=== PATIENT | male | born 1945 | race Caucasian/White ===

== ENCOUNTER 2021-06-28 12:35 | Emergency (ER) | payer OTHER, MEDICARE ==
[2021-06-28 13:16] VITALS: RESP 18; TEMP 100
--- NOTE | 2021-06-28 14:53 | ED ---
General Adult HPI - General Chief complaint: Extremity Injury, Upper Stated complaint: Rt Hand Injury/Infection Time Seen by Provider: 06/28/21 13:58 Source: patient Mode of arrival: ambulatory Limitations: physical limitation - History of Present Illness Initial comments: 76-year-old male with a past medical history of hyperlipidemia, hypertension, diabetes mellitus presents to the emergency room for right hand irritation. Patient states he was doing a project with a steel wool several days ago. Shortly afterward he started to get some swelling and redness in the palm of the hand. States it was throbbing last night and keeping him awake. Patient denies any fevers at home. States he was seen at the [facility] and had an x-ray performed and he did not see any metal material.Patient has no other complaints at this time including shortness of breath, chest pain, abdominal pain, nausea or vomiting, headache, or visual changes. - Related Data Home Medications Medication Instructions Recorded Confirmed Allopurinol [Zyloprim] 300 mg PO DAILY 06/28/21 06/28/21 Aspirin EC [Ecotrin Low Dose] 81 mg PO DAILY 06/28/21 06/28/21 Atorvastatin [Lipitor] 40 mg PO DAILY 06/28/21 06/28/21 Ibuprofen [Advil] 600 mg PO Q8H PRN 06/28/21 06/28/21 Ibuprofen [Motrin] 600 mg PO DAILY PRN 06/28/21 06/28/21 Insulin Aspart [NovoLOG Flexpen] 35 units SQ AC-TID 06/28/21 06/28/21 Insulin Glargine,Hum.rec.anlog 40 unit SQ BID 06/28/21 06/28/21 [Lantus Solostar Pen] Ketorolac 0.5% Ophth Soln [Acular 1 drop RIGHT EYE QID 06/28/21 06/28/21 0.5%] Moxifloxacin HCl [Moxifloxacin 1 drop RIGHT EYE QID 06/28/21 06/28/21 0.5%] Iesxcxyv-Seomzvjnb-Xkgrnpkd 1 applic RIGHT EYE HS 06/28/21 06/28/21 [Maxitrol Ophth Oint] Omeprazole 20 mg PO DAILY 06/28/21 06/28/21 Prednisolone Acetate/Pf 1 drop RIGHT EYE QID 06/28/21 06/28/21 [Prednisolone Acet 1% Eye Drop] Semaglutide [Ozempic] 0.5 mg SQ FR 06/28/21 06/28/21 Tamsulosin HCl [Flomax] 0.4 mg PO DAILY 06/28/21 06/28/21 Triamcinolone 0.1% Ointment 1 applic TOPICAL BID PRN 06/28/21 06/28/21 [Kenalog 0.1% Ointment] Valsartan 320 mg PO DAILY 06/28/21 06/28/21 amLODIPine [Norvasc] 5 mg PO DAILY 06/28/21 06/28/21 metFORMIN HCL [Glucophage] 1,000 mg PO BID 06/28/21 06/28/21 rOPINIRole HCL [Requip] 4 mg PO HS 06/28/21 06/28/21 Previous Rx's Medication Instructions Recorded Cephalexin [Keflex] 500 mg PO Q6HR 10 Days #40 cap 06/28/21 Sulfamethox-Tmp 800-160Mg [Bactrim 1 tab PO Q12HR #20 tab 06/28/21 DS 800-160 mg] Allergies Allergy/AdvReac Type Severity Reaction Status Date / Time No Known Allergies Allergy Verified 06/28/21 15:37 Review of Systems ROS Statement: Those systems with pertinent positive or pertinent negative responses have been documented in the HPI. ROS Other: All systems not noted in ROS Statement are negative. Past Medical History Past Medical History: Diabetes Mellitus, Hyperlipidemia, Hypertension History of Any Multi-Drug Resistant Organisms: None Reported Past Surgical History: Hernia Repair Additional Past Surgical History / Comment(s): right eye Past Psychological History: No Psychological Hx Reported Smoking Status: Former smoker Past Alcohol Use History: None Reported Past Drug Use History: None Reported General Exam Limitations: physical limitation General appearance: alert, in no apparent distress Head exam: Present: atraumatic Eye exam: Present: normal appearance, PERRL, EOMI. Absent: scleral icterus, conjunctival injection ENT exam: Present: normal exam, mucous membranes moist Neck exam: Present: normal inspection, full ROM. Absent: tenderness Respiratory exam: Present: normal lung sounds bilaterally. Absent: respiratory distress, wheezes Cardiovascular Exam: Present: regular rate, normal rhythm, normal heart sounds Extremities exam: Present: full ROM (Full range of motion of all digits of the right hand including full extension and full flexion), normal capillary refill (Capillary refill less than 2 seconds, radial pulse 2+ right upper extremity), other (Erythema and areas of induration noted on the hypothenar eminence of the right palm) Course Vital Signs 06/28/21 13:10 Temperature 100.0 F H Pulse Rate 69 Respiratory 18 Rate Blood Pressure 199/80 O2 Sat by Pulse 97 Oximetry Medical Decision Making - Medical Decision Making Vitals are stable. Patient has some nodular erythematous lesions noted to the hypo-thenar eminence of the right hand. He has full range of motion of all digits. No flexor tendon tenderness. Mild edema noted. No fluctuant areas, more nodular. She was also evaluated by Dr. Bosch. Low-grade temperature of 100.0 noted. No fevers at home. CBC is unremarkable with a normal white count of 9.1. CMP is unremarkable. CRP is normal. COVID-19 is negative. Outside x- ray was reviewed, there is no evidence for foreign body. Ultrasound shows prominent edema of the skin noted however no abnormal fluid collection in the palm. I discussed this case with Lurdes who is on-call for Dr. Blanco [facility]. Recommended starting him on Keflex and Bactrim and they will see him in the office Friday. I did discuss the patient that if symptoms worsen prior to that he will need to return to the emergency room and he is agreeable to this. I discussed this case and examined patient with attending Dr. Bosch who agrees with this assessment and treatment plan. - Lab Data Result diagrams: 06/28/21 14:39 06/28/21 14:39 Lab Results 06/28/21 06/28/21 06/28/21 Range/Units 14:39 14:39 14:39 WBC 9.1 (3.8-10.6) k/uL RBC 5.75 (4.30-5.90) m/uL Hgb 15.9 (13.0-17.5) gm/dL Hct 46.5 (39.0-53.0) % MCV 81.0 (80.0-100.0) fL MCH 27.7 (25.0-35.0) pg MCHC 34.2 (31.0-37.0) g/dL RDW 15.4 (11.5-15.5) % Plt Count 195 (150-450) k/uL MPV 6.7 Neutrophils % 74 % Lymphocytes % 17 % Monocytes % 5 % Eosinophils % 2 % Basophils % 1 % Neutrophils # 6.8 (1.3-7.7) k/uL Lymphocytes # 1.5 (1.0-4.8) k/uL Monocytes # 0.5 (0-1.0) k/uL Eosinophils # 0.2 (0-0.7) k/uL Basophils # 0.0 (0-0.2) k/uL Poikilocytosis Slight Sodium 135 L (137-145) mmol/L Potassium 4.7 (3.5-5.1) mmol/L Chloride 102 (98-107) mmol/L Carbon Dioxide 23 (22-30) mmol/L Anion Gap 10 mmol/L BUN 23 H (9-20) mg/dL Creatinine 0.99 (0.66-1.25) mg/dL Est GFR (CKD-EPI)AfAm 86 (>60 ml/min/1.73 sqM) Est GFR (CKD-EPI)NonAf 75 (>60 ml/min/1.73 sqM) Glucose 163 H (74-99) mg/dL Plasma Lactic Acid John 1.2 (0.7-2.0) mmol/L Calcium 9.6 (8.4-10.2) mg/dL Total Bilirubin 1.2 (0.2-1.3) mg/dL AST 26 (17-59) U/L ALT 18 (4-49) U/L Alkaline Phosphatase 62 (38-126) U/L C-Reactive Protein 0.6 (<1.0) mg/dL Total Protein 7.6 (6.3-8.2) g/dL Albumin 4.3 (3.5-5.0) g/dL Coronavirus (PCR) (Not Detectd) Influenza Type A RNA (Not Detectd) Influenza Type B (PCR) (Not Detectd) 06/28/21 06/28/21 Range/Units 14:39 14:39 WBC (3.8-10.6) k/uL RBC (4.30-5.90) m/uL Hgb (13.0-17.5) gm/dL Hct (39.0-53.0) % MCV (80.0-100.0) fL MCH (25.0-35.0) pg MCHC (31.0-37.0) g/dL RDW (11.5-15.5) % Plt Count (150-450) k/uL MPV Neutrophils % % Lymphocytes % % Monocytes % % Eosinophils % % Basophils % % Neutrophils # (1.3-7.7) k/uL Lymphocytes # (1.0-4.8) k/uL Monocytes # (0-1.0) k/uL Eosinophils # (0-0.7) k/uL Basophils # (0-0.2) k/uL Poikilocytosis Sodium (137-145) mmol/L Potassium (3.5-5.1) mmol/L Chloride (98-107) mmol/L Carbon Dioxide (22-30) mmol/L Anion Gap mmol/L BUN (9-20) mg/dL Creatinine (0.66-1.25) mg/dL Est GFR (CKD-EPI)AfAm (>60 ml/min/1.73 sqM) Est GFR (CKD-EPI)NonAf (>60 ml/min/1.73 sqM) Glucose (74-99) mg/dL Plasma Lactic Acid John (0.7-2.0) mmol/L Calcium (8.4-10.2) mg/dL Total Bilirubin (0.2-1.3) mg/dL AST (17-59) U/L ALT (4-49) U/L Alkaline Phosphatase (38-126) U/L C-Reactive Protein (<1.0) mg/dL Total Protein (6.3-8.2) g/dL Albumin (3.5-5.0) g/dL Coronavirus (PCR) Not Detected (Not Detectd) Influenza Type A RNA Not Detected (Not Detectd) Influenza Type B (PCR) Not Detected (Not Detectd) Disposition Clinical Impression: Hand pain, right, Cellulitis Disposition: HOME SELF-CARE Condition: Good Instructions (If sedation given, give patient instructions): Cellulitis (ED) Additional Instructions: Please take antibiotic as directed. Follow-up with your doctor. Follow-up with repeat exam Friday. Return to the emergency room after having worsening symptoms such as high fevers, streaking redness up the hand, or significantly worsening swelling. Prescriptions: Sulfamethox-Tmp 800-160Mg [Bactrim DS 800-160 mg] 1 tab PO Q12HR #20 tab Cephalexin [Keflex] 500 mg PO Q6HR 10 Days #40 cap Is patient prescribed a controlled substance at d/c from ED?: No Referrals: [facility],Clinic [Primary Care Provider] - 1-2 days Time of Disposition: 17:02
[2021-06-28 15:05] LABS: Albumin 4.3 g/dL (3.5-5.0); C Reactive Protein 0.6 mg/dL (<1.0); Calcium 9.6 mg/dL (8.4-10.2); Potassium 4.7 mmol/L (3.5-5.1); Total Bilirubin 1.2 mg/dL (0.2-1.3); Total Protein 7.6 g/dL (6.3-8.2)
[2021-06-28 15:12] LABS: Basophils % (A) 1 %; Eosinophils # (A) 0.2 k/uL (0-0.7); Eosinophils % (A) 2 %; HCT 46.5 % (39.0-53.0); HGB 15.9 gm/dL (13.0-17.5); Lymphocytes # (A) 1.5 k/uL (1.0-4.8); Lymphocytes % (A) 17 %; MCH 27.7 pg (25.0-35.0); MCHC 34.2 g/dL (31.0-37.0); Mean Platelet Volume 6.7; Monocytes # (A) 0.5 k/uL (0-1.0); Monocytes % (A) 5 %; Neutrophils # (A) 6.8 k/uL (1.3-7.7); Neutrophils % (A) 74 %; Platelet Count 195 k/uL (150-450); Poikilocytosis Slight; RBC 5.75 m/uL (4.30-5.90); RDW 15.4 % (11.5-15.5); WBC 9.1 k/uL (3.8-10.6)
--- NOTE | 2021-06-28 16:17 | US ---
EXAMINATION TYPE: US extremity nonvasc mass RT DATE OF EXAM: 06/28/2021 COMPARISON: Radiograph 06/28/2021 CLINICAL HISTORY: 76-year-old male soft tissue hand. Patient injured hand with steel wool at home. P atient states he had an xray and no foreign object was seen. TECHNIQUE AND FINDINGS: Api Architect notes: Scanned area of concern on right palm. -Area lateral palm= no fluid collection or mass visualized. Skin edema seen. -Area by fingers= no fluid collection or mass visualized. Skin edema seen. IMPRESSION: Scanning along the patient's palm shows no abnormal fluid collection. Prominent edema of the skin is noted
[2021-06-28] MEDS ORDERED: SULFAMETH-TMP DS STARTER PACK 2 TAB BTL PO STA (16:59)
[2021-06-28] MEDS ORDERED: CEPHALEXIN 500MG STARTER PACK 4 CAP BTL PO STA (16:59)
[2021-06-28] MEDS ORDERED: KETOROLAC 15 MG/ML 1 ML VIAL IM STA (17:23)
[2021-06-28 17:32] VITALS: BP 163/92; PULSE 71
== END 2021-06-28 17:32 | disposition home or self-care (01) ==
LOC: EC 12:35
DX: L03.113 Cellulitis of right upper limb (principal); M79.641 Pain in right hand; E78.5 Hyperlipidemia, unspecified; I10 Essential (primary) hypertension; E11.9 Type 2 diabetes mellitus without complications; Z20.822 Contact with and (suspected) exposure to COVID-19; Z79.82 Long term (current) use of aspirin; Z79.4 Long term (current) use of insulin; Z79.84 Long term (current) use of oral hypoglycemic drugs; Z87.891 Personal history of nicotine dependence
CPT/HCPCS: 99284; 96372; 36415; 80053; 83605; 85025; 86140; 87502; 87635; 76882; J1885

== ENCOUNTER 2023-04-12 11:05 | Inpatient (IN) | payer OTHER, MEDICARE ==
[2023-04-12] MEDS ORDERED: ACETAMINOPHEN TAB 500 MG TAB PO STA (11:39)
--- NOTE | 2023-04-12 11:42 | ED ---
General Adult HPI - General Chief complaint: Weakness Stated complaint: Weakness Time Seen by Provider: 04/12/23 11:15 Source: patient, RN notes reviewed Mode of arrival: ambulatory Limitations: no limitations - History of Present Illness Initial comments: Patient is a pleasant 78-year-old male presenting to the emergency Department with fatigue and weakness. Symptoms started 3-4 days ago. Patient was working on a heater and questions carbon monoxide exposure. Patient does feel a little short of breath. Occasional cough. Patient has been fatigued and sleeping more. Patient is unclear if fevers at home - Related Data Home Medications Medication Instructions Recorded Confirmed Aspirin EC [Ecotrin Low Dose] 81 mg PO DAILY 06/28/21 04/12/23 Atorvastatin [Lipitor] 40 mg PO DAILY 06/28/21 04/12/23 Insulin Aspart [NovoLOG Flexpen] See Protocol SQ AC-TID PRN 06/28/21 04/12/23 Insulin Glargine,Hum.rec.anlog 40 unit SQ BID 06/28/21 04/12/23 [Lantus Solostar Pen] Omeprazole 20 mg PO DAILY 06/28/21 04/12/23 Semaglutide [Ozempic] 0.5 mg SQ FR 06/28/21 04/12/23 Tamsulosin HCl [Flomax] 0.4 mg PO DAILY 06/28/21 04/12/23 Valsartan 320 mg PO DAILY 06/28/21 04/12/23 allopurinoL [Zyloprim] 300 mg PO DAILY 06/28/21 04/12/23 metFORMIN HCL [Glucophage] 1,000 mg PO BID 06/28/21 04/12/23 rOPINIRole HCL [Requip] 4 mg PO HS 06/28/21 04/12/23 amLODIPine [Norvasc] 10 mg PO DAILY 04/12/23 04/12/23 Allergies Allergy/AdvReac Type Severity Reaction Status Date / Time No Known Allergies Allergy Verified 04/12/23 14:20 Review of Systems ROS Statement: Those systems with pertinent positive or pertinent negative responses have been documented in the HPI. ROS Other: All systems not noted in ROS Statement are negative. Constitutional: Reports: as per HPI Eyes: Denies: eye pain ENT: Denies: ear pain Respiratory: Reports: as per HPI, cough, dyspnea Cardiovascular: Denies: chest pain Endocrine: Reports: fatigue Gastrointestinal: Reports: nausea, vomiting. Denies: abdominal pain Genitourinary: Denies: dysuria Musculoskeletal: Denies: back pain Past Medical History Past Medical History: Diabetes Mellitus, Hyperlipidemia, Hypertension History of Any Multi-Drug Resistant Organisms: None Reported Past Surgical History: Hernia Repair Additional Past Surgical History / Comment(s): right eye Past Psychological History: No Psychological Hx Reported Smoking Status: Former smoker Past Alcohol Use History: None Reported Past Drug Use History: None Reported General Exam Limitations: no limitations General appearance: alert, in no apparent distress Head exam: Present: normocephalic Eye exam: Present: normal appearance Neck exam: Present: normal inspection Cardiovascular Exam: Present: regular rate, normal rhythm GI/Abdominal exam: Present: soft. Absent: tenderness Extremities exam: Present: normal inspection. Absent: pedal edema, calf tenderness Neurological exam: Present: alert Psychiatric exam: Present: normal affect, normal mood Skin exam: Present: normal color Course Vital Signs 04/12/23 04/12/23 04/12/23 11:09 11:37 12:28 Temperature 101.2 F H Pulse Rate 53 L 85 Respiratory 22 20 20 Rate Blood Pressure 126/67 133/54 O2 Sat by Pulse 94 L 99 Oximetry 04/12/23 13:22 Temperature 100.7 F H Pulse Rate 96 Respiratory 20 Rate Blood Pressure 98/52 O2 Sat by Pulse 99 Oximetry - Reevaluation(s) Reevaluation #1: 04/12/23 14:11 Patient reevaluated and resting comfortably at bedside. Abdomen remained soft and nontender. Patient still denies abdominal pain. Patient states he is feeling much better only feeling tired and fatigued EKG Findings - EKG Results: EKG: interpreted by ERMD (Left axis. Normal QRS. Nonspecific T-wave.), sinus rhythm Medical Decision Making - Medical Decision Making Was pt. sent in by a medical professional or institution (, PA, [employer]ELER, urgent care, hospital, or residential...) When possible be specific @ -No Did you speak to anyone other than the patient for history (EMS, parent, family, police, friend...)? What history was obtained from this source @ -Is present and helps provide history including onset of symptoms Did you review nursing and triage notes (agree or disagree)? Why? @ -I reviewed and agree with nursing and triage notes Were old charts reviewed (outside hosp., previous admission, EMS record, old EK G, old radiological studies, urgent care reports/EKG's, residential records)? Report findings @ -No old charts were reviewed Differential Diagnosis (chest pain, altered mental status, abdominal pain women, abdominal pain men, vaginal bleeding, weakness, fever, dyspnea, syncope, headache, dizziness, GI bleed, back pain, seizure, CVA, palpatations, mental health, musculoskeletal)? @ -Differential Fever: Pneumonia, viral URI, endocarditis, myocarditis, pericarditis, otitis, sinusitis, peritonsillar Abscess, retropharyngeal Abscess, epiglottitis, peritonitis, appendicitis, Liz cystitis, diverticulitis, hepatitis, colitis, UTI, PID, TOA, pyelonephritis, prostatitis, epididymitis, meningitis, encephalitis, pulmonary embolism, CVA, thyroid storm, pancreatitis, adrenal crisis, cavernous sinus thrombosis, this is not meant to be an all-inclusive list. EKG interpreted by me (3pts min.). @ -As above X-rays interpreted by me (1pt min.). @ -Chest x-ray shows no acute process CT interpreted by me (1pt min.). @ -None done U/S interpreted by me (1pt. min.). @ -None done What testing was considered but not performed or refused? (CT, X-rays, U/S, l abs)? Why? @ -None What meds were considered but not given or refused? Why? @ -None Did you discuss the management of the patient with other professionals (professionals i.e. , PA, [employer], lab, RT, psych nurse, 7th grade social studies teacher, ciaio lumite injector, teacher, radio division officer, spring encaser)? Give summary @ -Case was discussed with practitioner Fidel who will admit covering sound physician group Was smoking cessation discussed for >3mins.? @ -No Was critical care preformed (if so, how long)? @ -No Were there social determinants of health that impacted care today? How? (Homelessness, low income, unemployed, alcoholism, drug addiction, transportation, low edu. Level, literacy, decrease access to med. care, detention, rehab)? @ -No Was there de-escalation of care discussed even if they declined (Discuss DNR or withdrawal of care, Hospice)? DNR status @ -No What co-morbidities impacted this encounter? (DM, HTN, Smoking, COPD, CAD, Cancer, CVA, ARF, Chemo, Hep., AIDS, mental health diagnosis, sleep apnea, morbid obesity)? @ -None Was patient admitted / discharged? Hospital course, mention meds given and route, prescriptions, significant lab abnormalities, going to OR and other pertinent info. @ -Patient again reevaluated and feeling somewhat better. Patient and family updated on results and plan. Repeat blood pressures have been borderline. Patient will receive more fluids. Case discussed with practitioner Fidel with [facility] emergency department physician group will admit for observation covering for this PA patient.. Undiagnosed new problem with uncertain prognosis? @ -No Drug Therapy requiring intensive monitoring for toxicity (Heparin, Nitro, Insulin, Cardizem)? @ -No Were any procedures done? @ -No Diagnosis/symptom? @ -fever Acute, or Chronic, or Acute on Chronic? @ -acute Uncomplicated (without systemic symptoms) or Complicated (systemic symptoms)? @ -default Side effects of treatment? @ -No Exacerbation, Progression, or Severe Exacerbation? @ -No Poses a threat to life or bodily function? How? (Chest pain, [place], [place], pneumonia, PE, COPD, DKA, ARF, appy, cholecystitis, CVA, Diverticulitis, Homicidal, Suicidal, threat to staff... and all critical care pts) @ -No - Lab Data Result diagrams: 04/12/23 11:47 04/12/23 11:47 Lab Results 04/12/23 04/12/23 04/12/23 Range/Units 11:47 11:47 11:47 WBC 9.6 (3.8-10.6) k/uL RBC 4.63 (4.30-5.90) m/uL Hgb 13.4 (13.0-17.5) gm/dL Hct 37.2 L (39.0-53.0) % MCV 80.5 (80.0-100.0) fL MCH 29.0 (25.0-35.0) pg MCHC 36.0 (31.0-37.0) g/dL RDW 14.5 (11.5-15.5) % Plt Count 132 L (150-450) k/uL MPV 7.8 Neutrophils % 85 % Lymphocytes % 10 % Monocytes % 3 % Eosinophils % 1 % Basophils % 0 % Neutrophils # 8.1 H (1.3-7.7) k/uL Lymphocytes # 1.0 (1.0-4.8) k/uL Monocytes # 0.3 (0-1.0) k/uL Eosinophils # 0.1 (0-0.7) k/uL Basophils # 0.0 (0-0.2) k/uL Poikilocytosis Slight PT 11.2 (10.0-12.5) sec INR 1.0 (<1.2) APTT 29.3 (22.0-30.0) sec Carbon Monoxide, Quant (<10.0) % Sodium 131 L (137-145) mmol/L Potassium 3.9 (3.5-5.1) mmol/L Chloride 97 L (98-107) mmol/L Carbon Dioxide 23 (22-30) mmol/L Anion Gap 11 mmol/L BUN 21 H (9-20) mg/dL Creatinine 1.11 (0.66-1.25) mg/dL Est GFR (CKD-EPI)AfAm 74 (>60 ml/min/1.73 sqM) Est GFR (CKD-EPI)NonAf 64 (>60 ml/min/1.73 sqM) Glucose 239 H (74-99) mg/dL Plasma Lactic Acid John (0.7-2.0) mmol/L Calcium 8.2 L (8.4-10.2) mg/dL Total Bilirubin 2.4 H (0.2-1.3) mg/dL AST 21 (17-59) U/L ALT 16 (4-49) U/L Alkaline Phosphatase 52 (38-126) U/L Total Protein 6.8 (6.3-8.2) g/dL Albumin 3.6 (3.5-5.0) g/dL Influenza Type A (PCR) (Not Detectd) Influenza Type B (PCR) (Not Detectd) RSV (PCR) (Not Detectd) SARS-CoV-2 (PCR) (Not Detectd) 04/12/23 04/12/23 04/12/23 Range/Units 11:47 11:47 13:19 WBC (3.8-10.6) k/uL RBC (4.30-5.90) m/uL Hgb (13.0-17.5) gm/dL Hct (39.0-53.0) % MCV (80.0-100.0) fL MCH (25.0-35.0) pg MCHC (31.0-37.0) g/dL RDW (11.5-15.5) % Plt Count (150-450) k/uL MPV Neutrophils % % Lymphocytes % % Monocytes % % Eosinophils % % Basophils % % Neutrophils # (1.3-7.7) k/uL Lymphocytes # (1.0-4.8) k/uL Monocytes # (0-1.0) k/uL Eosinophils # (0-0.7) k/uL Basophils # (0-0.2) k/uL Poikilocytosis PT (10.0-12.5) sec INR (<1.2) APTT (22.0-30.0) sec Carbon Monoxide, Quant 1.1 (<10.0) % Sodium (137-145) mmol/L Potassium (3.5-5.1) mmol/L Chloride (98-107) mmol/L Carbon Dioxide (22-30) mmol/L Anion Gap mmol/L BUN (9-20) mg/dL Creatinine (0.66-1.25) mg/dL Est GFR (CKD-EPI)AfAm (>60 ml/min/1.73 sqM) Est GFR (CKD-EPI)NonAf (>60 ml/min/1.73 sqM) Glucose (74-99) mg/dL Plasma Lactic Acid John 1.8 (0.7-2.0) mmol/L Calcium (8.4-10.2) mg/dL Total Bilirubin (0.2-1.3) mg/dL AST (17-59) U/L ALT (4-49) U/L Alkaline Phosphatase (38-126) U/L Total Protein (6.3-8.2) g/dL Albumin (3.5-5.0) g/dL Influenza Type A (PCR) Not Detected (Not Detectd) Influenza Type B (PCR) Not Detected (Not Detectd) RSV (PCR) Not Detected (Not Detectd) SARS-CoV-2 (PCR) Not Detected (Not Detectd) Disposition Clinical Impression: Fever Disposition: ADMITTED IP TO THIS HOSP Condition: Stable Instructions (If sedation given, give patient instructions): Fever in Adults (ED) Additional Instructions: [id number] Tylenol or Motrin as needed. Please do follow-up with your primary care physician in the next day or 2 for recheck. Return for difficulty breathing, pain, abdominal pain, weakness, worsening symptoms or other concerns. [id number] Tylenol or Motrin. Is patient prescribed a controlled substance at d/c from ED?: No Referrals: [facility],Clinic [Primary Care Provider] - 1-2 days Time of Disposition: 14:23
[2023-04-12 12:06] LABS: Basophils % (A) 0 %; Eosinophils # (A) 0.1 k/uL (0-0.7); Eosinophils % (A) 1 %; HCT 37.2 % (39.0-53.0); HGB 13.4 gm/dL (13.0-17.5); Lymphocytes % (A) 10 %; MCV 80.5 fL (80.0-100.0); Mean Platelet Volume 7.8; Monocytes # (A) 0.3 k/uL (0-1.0); Monocytes % (A) 3 %; Neutrophils # (A) 8.1 k/uL (1.3-7.7); Neutrophils % (A) 85 %; Platelet Count 132 k/uL (150-450); Poikilocytosis Slight; RBC 4.63 m/uL (4.30-5.90); RDW 14.5 % (11.5-15.5); WBC 9.6 k/uL (3.8-10.6)
[2023-04-12 12:17] LABS: Partial Thromboplastin Time 29.3 sec (22.0-30.0); Prothrombin Time 11.2 sec (10.0-12.5)
[2023-04-12 12:22] LABS: ALT 16 U/L (4-49); AST 21 U/L (17-59); African American GFR (CKD) 74 (>60 ml/min/1.73 sqM); Albumin 3.6 g/dL (3.5-5.0); Alkaline Phosphatase 52 U/L (38-126); Anion Gap 11 mmol/L; Blood Urea Nitrogen 21 mg/dL (9-20); Calcium 8.2 mg/dL (8.4-10.2); Carbon Dioxide 23 mmol/L (22-30); Chloride 97 mmol/L (98-107); Glucose 239 mg/dL (74-99); Non-African American GFR(CKD) 64 (>60 ml/min/1.73 sqM); Potassium 3.9 mmol/L (3.5-5.1); Sodium 131 mmol/L (137-145); Total Bilirubin 2.4 mg/dL (0.2-1.3); Total Protein 6.8 g/dL (6.3-8.2)
[2023-04-12] MEDS: SODIUM CHLORIDE 0.9% 1,000 ML IV SCH ×2 (12:23→21:56)
--- NOTE | 2023-04-12 13:13 | XR ---
EXAMINATION TYPE: XR chest 2V DATE OF EXAM: 04/12/2023 COMPARISON: NONE HISTORY: Shortness of breath TECHNIQUE: Frontal and lateral views of the chest are obtained. FINDINGS: Scattered senescent parenchymal changes noted. Hyperinflation compatible with COPD. No evidence for infiltrate. No evidence for atelectasis. Heart size is stable. Mediastinal structures are stable and grossly unremarkable. No evidence for hilar prominence. Degenerative changes dorsal spine. IMPRESSION: 1. No evidence for acute pulmonary disease.
[2023-04-12] MEDS ORDERED: SODIUM CHLORIDE 0.9% 1,000 ML IV STA ×3 (13:36→14:38)
[2023-04-12] MEDS ORDERED: NALOXONE 0.4 MG/ML 1 ML VIAL IV PRN (14:39)
[2023-04-12] MEDS ORDERED: IBUPROFEN 400 MG TAB PO PRN (14:39)
[2023-04-12] MEDS ORDERED: ONDANSETRON 4 MG/2 ML VIAL IVP PRN (14:39)
--- NOTE | 2023-04-12 16:08 | US ---
EXAMINATION TYPE: US gallbladder DATE OF EXAM: 04/12/2023 COMPARISON: NONE CLINICAL INDICATION: Male, 78 years old with history of pain; RUQ pain, patient not NPO - ate 1 hour before exam TECHNIQUE: Multiple sonographic images of the right upper quadrant are obtained. FINDINGS: EXAM MEASUREMENTS: Liver Length: 19.3 cm Gallbladder Wall: 0.2 cm CBD: 0.4 cm Right Kidney: 12.7 x 5.2 x 5.7 cm Difficult and limited study due to patient body habitus and patient not prepped Pancreas: limited by overlying midline bowel gas Liver: enlarged Gallbladder: limited visualization, no stones seen at this time Evidence for sonographic [place]'s sign: no CBD: visualized portions wnl, limited by overlying bowel gas Right Kidney: wnl IMPRESSION: No evidence for acute process.
[2023-04-12 17:59] LABS: Glucose,Whole Blood 239 mg/dL (70-110)
[2023-04-12] MEDS ORDERED: DEXTROSE 50% SYRINGE 50 ML IVP PRN ×2 (18:33)
--- NOTE | 2023-04-12 18:40 | P.HPIM ---
History of Present Illness H&P Date: 04/12/23 78-year-old male with PMH of diabetes mellitus, hypertension, restless leg syndrome, gout, BPH, GERD, dyslipidemia presents to [facility] for 3-4 days of generalized weakness. Of note, patient has recently installed a heater in his garage and believes he may have carbon monoxide poisoning. He has been hanging out in the garage with the door closed when he would experience nausea, lightheadedness, generalized weakness and chills. This is happened every day since Friday. He would usually sleep it off and feel somewhat normal midday the following day. He reports a dry cough. He does complain of shortness of breath with exertion. He has no other complaints. He reports one episode of diarrhea. He reports a chronic wound on his right foot has been ongoing for the past 2 years [facility] In the ED, he was noted to be febrile with T-max 101.2. He was tachycardic with heart rate as high as 96. His BP was as low as 98/52. CBC showed hematocrit of 37.2 and platelet count of 132 with slight neutrophilia. INR was 1. Carbon monoxide 1.1. CMP showed sod ium of 131, chloride of 97, BUN 21, glucose 239, total bilirubin 2.4, calcium 8.2. Lactic acid 1.8. Flu, RSV, COVID-19 negative. Chest x-ray with no acute process. EKG showed sinus rhythm, PVCs, RBBB. Pertinent positives and negatives as discussed in HPI, a complete review of systems was performed and all other systems are negative. General: non toxic, no distress, appears at stated age Derm: warm, dry Head: atraumatic, normocephalic, symmetric Eyes: EOMI, no lid lag, anicteric sclera Cardiovascular: S1S2 reg, no murmur Lungs: CTA bilateral, no rhonchi, no rales , no accessory muscle use Ext: no gross muscle atrophy, no edema, no contractures R mid gutierrez erythema and superficial wound. R lateral foot wound with no discharge or erythema. Neuro: no focal neuro deficits Psych: Alert, oriented, appropriate affect Sepsis of unknown origin R foot wound Elevated total bilirubin Diabetes mellitus with hyperglycemia Hyponatremia Mild thrombocytopenia Chronic conditions: Restless leg syndrome, hypertension, gout, BPH, GERD, dyslipidemia Based on my assessment of this patient, this patient meets a high complexity level of care. Patient has an acute diagnosis of Sepsis on unknown origin that poses a threat to life or bodily function. Sepsis of unknown origin: Fever, tachycardia, hypotension. Obtain UA with reflex to UCx. BCx. ESR. CRP. Procalcitonin. Telemetry monitoring. Start Rocephin 2g IV QD. Trend Trop x 2 to rule out ACS. Consult ID. R foot wound: Abx as above. Foot XR. Elevated total bilirubin: GB US negative for pathology. Diabetes mellitus with hyperglycemia: MISS. Hiwot JOSHI. Hypoglycemic precautions. Hyponatremia Mild thrombocytopenia I have reviewed the following customer service sales consultant notes: I have reviewed the results of the following tests: As per HPI. I have ordered the following tests: Obtain UA with reflex to UCx. BCx. ESR. CRP. Procalcitonin. Foot XR I have discussed the care of this patient with the following independent historian: I have independently interpreted the following test below: CXR as above. I have discussed the management of this patient with the following physician: Past Medical History Past Medical History: Diabetes Mellitus, Hyperlipidemia, Hypertension History of Any Multi-Drug Resistant Organisms: None Reported Past Surgical History: Back Surgery, Hernia Repair Additional Past Surgical History / Comment(s): cataract bilat removed, biopsy for skin cancer on right eyeli (negative for cancer), ingunial hernia repair. Past Anesthesia/Blood Transfusion Reactions: No Reported Reaction Past Psychological History: No Psychological Hx Reported Smoking Status: Former smoker Past Alcohol Use History: None Reported Past Drug Use History: None Reported Medications and Allergies Home Medications Medication Instructions Recorded Confirmed Type Aspirin EC [Ecotrin Low Dose] 81 mg PO DAILY 06/28/21 04/12/23 History Atorvastatin [Lipitor] 40 mg PO DAILY 06/28/21 04/12/23 History Insulin Aspart [NovoLOG Flexpen] See Protocol SQ AC-TID PRN 06/28/21 04/12/23 History Insulin Glargine,Hum.rec.anlog 40 unit SQ BID 06/28/21 04/12/23 History [Lantus Solostar Pen] Omeprazole 20 mg PO DAILY 06/28/21 04/12/23 History Semaglutide [Ozempic] 0.5 mg SQ FR 06/28/21 04/12/23 History Tamsulosin HCl [Flomax] 0.4 mg PO DAILY 06/28/21 04/12/23 History Valsartan 320 mg PO DAILY 06/28/21 04/12/23 History allopurinoL [Zyloprim] 300 mg PO DAILY 06/28/21 04/12/23 History metFORMIN HCL [Glucophage] 1,000 mg PO BID 06/28/21 04/12/23 History rOPINIRole HCL [Requip] 4 mg PO HS 06/28/21 04/12/23 History amLODIPine [Norvasc] 10 mg PO DAILY 04/12/23 04/12/23 History Allergies Allergy/AdvReac Type Severity Reaction Status Date / Time No Known Allergies Allergy Verified 04/12/23 14:20 Physical Exam Vitals: Vital Signs Temp Pulse Pulse Resp BP BP Pulse Ox 04/12/23 18:02 98.3 F 83 18 124/70 98 04/12/23 17:05 85 14 137/71 99 04/12/23 16:14 99.2 F 82 16 103/56 97 04/12/23 15:30 71 18 102/62 98 04/12/23 13:45 82 16 80/58 99 04/12/23 13:22 100.7 F H 96 20 98/52 99 04/12/23 12:28 85 20 133/54 99 04/12/23 11:37 20 04/12/23 11:09 101.2 F H 53 L 22 126/67 94 L Intake and Output 04/12/23 04/12/23 04/12/23 06:59 14:59 22:59 Other: Weight 109.316 kg 109.316 kg Results CBC & Chem 7: 04/12/23 11:47 04/12/23 11:47 Labs: Abnormal Lab Results - Last 24 Hours (Table) 04/12/23 04/12/23 04/12/23 Range/Units 11:47 11:47 17:57 Hct 37.2 L (39.0-53.0) % Plt Count 132 L (150-450) k/uL Neutrophils # 8.1 H (1.3-7.7) k/uL Sodium 131 L (137-145) mmol/L Chloride 97 L (98-107) mmol/L BUN 21 H (9-20) mg/dL Glucose 239 H (74-99) mg/dL POC Glucose (mg/dL) 239 H (70-110) mg/dL Calcium 8.2 L (8.4-10.2) mg/dL Total Bilirubin 2.4 H (0.2-1.3) mg/dL Thrombosis Risk Factor Assmnt - Choose All That Apply Any of the Below Risk Factors Present?: Yes Each Factor Represents 1 point: Obesity (BMI >25) Each Risk Factor Represents 2 Points: Age 61-74 years Other congenital or acquired thrombophilia - If yes, enter type in comment: No Thrombosis Risk Factor Assessment Total Risk Factor Score: 3 Thrombosis Risk Factor Assessment Level: Moderate Risk
--- NOTE | 2023-04-12 19:20 | XR ---
EXAMINATION TYPE: XR foot complete RT DATE OF EXAM: 04/12/2023 7:13 PM CLINICAL INDICATION:Male, 78 years old with history of foot pain, concern for osteomyelitis. COMPARISON: None. TECHNIQUE: The right foot was examined in the AP, oblique, and lateral projections. FINDINGS: Degenerative changes are noted throughout the tarsal joints in the metatarsal joints, most pronounced involving the first interphalangeal joint of the great toe. No evidence of osseous erosive changes. Prominent calcaneal enthesophyte. No evidence of radiopaque foreign body. Mass or calcifications iden tified. IMPRESSION: 1. No evidence of acute process or osteomyelitis. 2. Osteoarthritic changes throughout the foot.
[2023-04-12 20:32] LABS: Glucose,Whole Blood 306 mg/dL (70-110)
[2023-04-12] MEDS ORDERED: rOPINIRole HCL 4 MG TABLET PO SCH (21:00)
[2023-04-12] MEDS: INSULIN ASPART (NovoLOG) 100 UNIT/ML VIAL SQ SCH (21:18)
[2023-04-12] MEDS: FAMOTIDINE 20 MG TAB PO SCH (21:18)
[2023-04-12] MEDS: ACETAMINOPHEN TAB 325 MG TAB PO PRN (21:24)
[2023-04-12 22:29] LABS: Appearance,Urine Clear (Clear); Bilirubin,Urine Negative (Negative); Blood,Urine Moderate (Negative); Color,Urine Yellow; Glucose,Urine (UA) 4+ (Negative); Ketones,Urine Negative (Negative); Leukocyte Esterase,Urine Negative (Negative); Mucus,Urine Rare /hpf; Nitrite,Urine Negative (Negative); PH, Urine 5.5 (5.0-8.0); Protein,Urine 1+ (Negative); RBC,Urine 2 /hpf (0-5); Specific Gravity,Urine 1.021 (1.001-1.035); WBC,Urine 2 /hpf (0-5)
[2023-04-13] MEDS: SODIUM CHLORIDE 0.9% 1,000 ML IV SCH ×2 (05:35→15:01)
[2023-04-13 06:32] LABS: Glucose,Whole Blood 197 mg/dL (70-110)
[2023-04-13] MEDS: INSULIN ASPART (NovoLOG) 100 UNIT/ML VIAL SQ SCH ×4 (06:35→22:01)
[2023-04-13] MEDS: PANTOPRAZOLE 40 MG TABLET PO SCH (06:36)
[2023-04-13] MEDS: ACETAMINOPHEN TAB 325 MG TAB PO PRN (08:18)
[2023-04-13] MEDS: ENOXAPARIN 40 MG/0.4 ML SYRINGE SQ SCH (08:19)
[2023-04-13] MEDS: ATORVASTATIN 40 MG TAB PO SCH (08:19)
[2023-04-13] MEDS: allopurinoL 300 MG TAB PO SCH (08:19)
[2023-04-13] MEDS: FAMOTIDINE 20 MG TAB PO SCH ×2 (08:19→22:01)
[2023-04-13] MEDS: ASPIRIN 81 MG PO SCH (08:19)
[2023-04-13 08:59] LABS: Basophils # (A) 0.02 X 10*3/uL (0.00-0.10); Basophils % (A) 0.3 %; Eosinophils # (A) 0 X 10*3/uL (0.04-0.35); Eosinophils % (A) 0 %; HCT 34.7 % (39.6-50.0); Lymphocytes # (A) 0.84 X 10*3/uL (0.90-5.00); Lymphocytes % (A) 11.5 %; MCH 27.8 pg (27.0-32.0); MCHC 34.6 d/dL (32.0-37.0); MCV 80.5 FL (80.0-97.0); Mean Platelet Volume 10.7 FL (9.5-12.2); Monocytes % (A) 5.5 %; NRBC Per 100 WBC 0 X 10*3/uL (0.00-0.01); Neutrophils # (A) 6.03 X 10*3/uL (1.80-7.70); Neutrophils % (A) 82.4 %; Platelet Count 120 X 10*3/uL (140-440); RBC 4.31 X 10*6/uL (4.40-5.60); RDW 14.7 % (11.5-14.5); WBC 7.31 X 10*3/uL (4.50-10.00)
[2023-04-13 09:14] LABS: ALT 9 U/L (10-49); AST 19 U/L (14-35); Albumin 3.3 d/dL (3.8-4.9); Albumin/Globulin Ratio 1.32 Ratio (1.60-3.17); Alkaline Phosphatase 42 U/L (41-126); Blood Urea Nitrogen 18.6 mg/dL (9.0-27.0); Calcium 7.6 mg/dL (8.7-10.3); Carbon Dioxide 22.6 mmol/L (21.6-31.8); Chloride 102 mmol/L (96-109); Globulin 2.5 d/dL (1.6-3.3); Glucose 189 mg/dL (70-110); Potassium 3.8 mmol/L (3.5-5.5); Sodium 135 mmol/L (135-145); Total Bilirubin 1.4 mg/dL (0.3-1.2); Total Protein 5.8 d/dL (6.2-8.2)
[2023-04-13 09:48] LABS: Erythrocyte Sedimentation Rate 48 mm/Hr (0-20)
--- NOTE | 2023-04-13 11:21 | P.PN ---
Subjective Progress Note Date: 04/13/23 78-year-old male with PMH of diabetes mellitus, hypertension, restless leg syndrome, gout, BPH, GERD, dyslipidemia presents to [facility] for 3-4 days of generalized weakness. Of note, patient has recently installed a heater in his garage and believes he may have carbon monoxide poisoning. He has been hanging out in the garage with the door closed when he would experience nausea, lightheadedness, generalized weakness and chills. This is happened every day since Friday. He would usually sleep it off and feel somewhat normal midday the following day. He reports a dry cough. He does complain of shortness of breath with exertion. He has no other complaints. He reports one episode of diarrhea. He reports a chronic wound on his right foot has been ongoing for the past 2 years [facility]. In the ED, he was noted to be febrile with T-max 101.2. He was tachycardic with heart rate as high as 96. His BP was as low as 98/52. CBC showed hematocrit of 37.2 and platelet count of 132 with slight neutrophilia. INR was 1. Carbon monoxide 1.1. CMP showed sodium of 131, chloride of 97, BUN 21, glucose 239, total bilirubin 2.4, calcium 8.2. Lactic acid 1.8. Flu, RSV, COVID-19 negative. Chest x-ray with no acute process. EKG showed sinus rhythm, PVCs, RBBB. 04/13 Patient seen and examined. He reports difficulty sleeping last night. Complains of fatigue and episodes of sweating overnight. Troponin 0.018. Procal 0.46. UA shows moderate blood with 2 RBCs. Tmax 102.8F around 7:41 PM last night. Foot XR negative for OM. ESR 48. CRP 18.3. General: non toxic, no distress, appears at stated age Derm: warm, dry Head: atraumatic, normocephalic, symmetric Eyes: EOMI, no lid lag, anicteric sclera Cardiovascular: S1S2 reg, no murmur Lungs: CTA bilateral, no rhonchi, no rales , no accessory muscle use Ext: no gross muscle atrophy, no edema, no contractures R mid gutierrez erythema and superficial wound, venous ulcer. R lateral foot wound with no discharge or erythema. Neuro: no focal neuro deficits Psych: Alert, oriented, appropriate affect Sepsis of unknown origin R foot wound Venous ulcer RLE Elevated total bilirubin Diabetes mellitus with hyperglycemia Hyponatremia Mild thrombocytopenia Hematuria Chronic conditions: Restless leg syndrome, hypertension, gout, BPH, GERD, dyslipidemia Based on my assessment of this patient, this patient meets a high complexity level of care. Patient has an acute diagnosis of Sepsis on unknown origin that poses a threat to life or bodily function. Sepsis of unknown origin: Fever, tachycardia, hypotension. UA negative for LE or nitrite. BCx ordered. ESR, CRP elevated. Procalcitonin 0.46. Telemetry monitoring. Rocephin 2g IV QD. Trend Trop x 2 to rule out ACS. Consult ID. R foot wound: Abx as above. Foot XR negative for OM. Venous ulcer RLE Elevated total bilirubin: GB US negative for pathology. Diabetes mellitus with hyperglycemia: MISS. Hiwot JOSHI. Hypoglycemic precautions. Hyponatremia Mild thrombocytopenia Hematuria: Obtain CPK. I have reviewed the following marketing operations consultant notes: I have reviewed the results of the following tests: UA, Foot XR, Procal, Trop I have ordered the following tests: BCx. Sputum Cx. CPK I have discussed the care of this patient with the following independent histori an: I have independently interpreted the following test below: I have discussed the management of this patient with the following physician: Objective - Vital Signs Vital signs: Vital Signs Temp 99.1 F 04/13/23 02:44 Pulse 82 04/13/23 02:44 Resp 15 04/13/23 02:44 BP 121/60 04/13/23 02:44 Pulse Ox 95 04/13/23 02:44 FiO2 Intake & Output 04/12/23 04/13/23 04/13/23 18:59 06:59 18:59 Weight 109.316 kg Other: Voiding Method Toilet # Voids 2 - Labs CBC & Chem 7: 04/13/23 05:37 04/13/23 05:37 Labs: Abnormal Lab Results - Last 24 Hours (Table) 04/12/23 04/12/23 04/12/23 Range/Units 11:47 11:47 11:47 Hct 37.2 L (39.0-53.0) % Plt Count 132 L (150-450) k/uL Neutrophils # 8.1 H (1.3-7.7) k/uL Sodium 131 L (137-145) mmol/L Chloride 97 L (98-107) mmol/L BUN 21 H (9-20) mg/dL Glucose 239 H (74-99) mg/dL POC Glucose (mg/dL) (70-110) mg/dL Calcium 8.2 L (8.4-10.2) mg/dL Total Bilirubin 2.4 H (0.2-1.3) mg/dL Procalcitonin 0.46 H (0.02-0.09) ng/mL Urine Protein (Negative) Urine Glucose (UA) (Negative) Urine Blood (Negative) Urine Mucus (None) /hpf 04/12/23 04/12/23 04/12/23 Range/Units 17:57 20:30 22:06 Hct (39.0-53.0) % Plt Count (150-450) k/uL Neutrophils # (1.3-7.7) k/uL Sodium (137-145) mmol/L Chloride (98-107) mmol/L BUN (9-20) mg/dL Glucose (74-99) mg/dL POC Glucose (mg/dL) 239 H 306 H (70-110) mg/dL Calcium (8.4-10.2) mg/dL Total Bilirubin (0.2-1.3) mg/dL Procalcitonin (0.02-0.09) ng/mL Urine Protein 1+ H (Negative) Urine Glucose (UA) 4+ H (Negative) Urine Blood Moderate H (Negative) Urine Mucus Rare H (None) /hpf 04/13/23 Range/Units 06:24 Hct (39.0-53.0) % Plt Count (150-450) k/uL Neutrophils # (1.3-7.7) k/uL Sodium (137-145) mmol/L Chloride (98-107) mmol/L BUN (9-20) mg/dL Glucose (74-99) mg/dL POC Glucose (mg/dL) 197 H (70-110) mg/dL Calcium (8.4-10.2) mg/dL Total Bilirubin (0.2-1.3) mg/dL Procalcitonin (0.02-0.09) ng/mL Urine Protein (Negative) Urine Glucose (UA) (Negative) Urine Blood (Negative) Urine Mucus (None) /hpf
[2023-04-13 12:21] LABS: Glucose,Whole Blood 241 mg/dL (70-110)
[2023-04-13] MEDS: AMPICILLIN-SULBACTAM 3 GM in SODIUM CHLORIDE 0.9% 100 ML IVPB SCH ×3 (15:00→23:44)
[2023-04-13 17:20] LABS: Glucose,Whole Blood 239 mg/dL (70-110)
[2023-04-13] MEDS: rOPINIRole HCL 4 MG TABLET PO SCH (18:51)
--- NOTE | 2023-04-13 19:15 | P.CONS ---
History of Present Illness - Reason for Consult Consult date: 04/13/23 SIRS,R foot wound Requesting physician: Jensen Renee - Chief Complaint Fatigue and weakness x few days - History of Present Illness Patient is a 78-year-old male with a past medical history significant for diabetes mellitus hypertension hyperlipidemia patient did have a history of right foot plantar ulcers for the patient has been evaluated by litigator at the [place] patient presented to hospital yesterday morning for evaluation of fatigue and weakness symptom has been going on for 3 to 4 days patient apparently mention he was working on a heated and concern for possible carbon monoxide exposure patient has been complaining of some cough no sputum production shortness of breath but no chest pain did have some headache but no photophobia nausea but no vomiting no abdominal pain or diarrhea patient was noticed to have erythema to the right lower extremity and the patient did have a fever on presentation to the hospital of 101.2 and a fever of 101 F this morning patient was not hypoxic hypotensive or tachycardic patient did have a normal white count creatinine 1.2 liver exams are normal CRP 18.30 procalcitonin 0.46 UA negative influenza RSV and COVID testing was negative patient chest x-ray no evidence for acute pulmonary process gallbladder ultrasound no evidence for acute process foot x-ray no evidence for acute process or osteomyelitis patient received a dose of Rocephin infectious he was consulted for further management Review of Systems Positive point and negatives has been mentioned in the HPI, complete review of systems was performed and all other systems are negative Past Medical History Past Medical History: Diabetes Mellitus, Hyperlipidemia, Hypertension History of Any Multi-Drug Resistant Organisms: None Reported Past Surgical History: Back Surgery, Hernia Repair Additional Past Surgical History / Comment(s): cataract bilat removed, biopsy for skin cancer on right eyeli (negative for cancer), ingunial hernia repair. Past Anesthesia/Blood Transfusion Reactions: No Reported Reaction Past Psychological History: No Psychological Hx Reported Smoking Status: Former smoker Past Alcohol Use History: None Reported Past Drug Use History: None Reported Medications and Allergies Home Medications Medication Instructions Recorded Confirmed Type Aspirin EC [Ecotrin Low Dose] 81 mg PO DAILY 06/28/21 04/12/23 History Atorvastatin [Lipitor] 40 mg PO DAILY 06/28/21 04/12/23 History Insulin Aspart [NovoLOG Flexpen] See Protocol SQ AC-TID PRN 06/28/21 04/12/23 History Insulin Glargine,Hum.rec.anlog 40 unit SQ BID 06/28/21 04/12/23 History [Lantus Solostar Pen] Omeprazole 20 mg PO DAILY 06/28/21 04/12/23 History Semaglutide [Ozempic] 0.5 mg SQ FR 06/28/21 04/12/23 History Tamsulosin HCl [Flomax] 0.4 mg PO DAILY 06/28/21 04/12/23 History Valsartan 320 mg PO DAILY 06/28/21 04/12/23 History allopurinoL [Zyloprim] 300 mg PO DAILY 06/28/21 04/12/23 History metFORMIN HCL [Glucophage] 1,000 mg PO BID 06/28/21 04/12/23 History rOPINIRole HCL [Requip] 4 mg PO HS 06/28/21 04/12/23 History amLODIPine [Norvasc] 10 mg PO DAILY 04/12/23 04/12/23 History Acetaminophen Tab [Tylenol] 650 mg PO Q6HR PRN tab 04/15/23 Rx Amoxic-Pot Clav 875-125Mg 1 tab PO BID 4 Days #8 tab 04/15/23 Rx [Augmentin 875-125] Allergies Allergy/AdvReac Type Severity Reaction Status Date / Time No Known Allergies Allergy Verified 04/12/23 14:20 Physical Exam Vitals: Vital Signs Temp Pulse Pulse Resp BP BP BP 04/13/23 09:20 98.7 F 79 122/63 04/13/23 08:00 86 16 04/13/23 07:00 101.0 F H 86 16 127/62 04/13/23 02:44 99.1 F 82 15 121/60 04/13/23 01:23 98 16 04/12/23 21:18 98 16 04/12/23 19:41 102.8 F H 98 16 156/73 04/12/23 18:02 98.3 F 83 18 124/70 04/12/23 17:05 85 14 137/71 04/12/23 16:14 99.2 F 82 16 103/56 04/12/23 15:30 71 18 102/62 04/12/23 13:45 82 16 80/58 04/12/23 13:22 100.7 F H 96 20 98/52 Pulse Ox 04/13/23 09:20 95 04/13/23 08:00 04/13/23 07:00 96 04/13/23 02:44 95 04/13/23 01:23 04/12/23 21:18 04/12/23 19:41 96 04/12/23 18:02 98 04/12/23 17:05 99 04/12/23 16:14 97 04/12/23 15:30 98 04/12/23 13:45 99 04/12/23 13:22 99 Intake and Output 04/12/23 04/13/23 04/13/23 22:59 06:59 14:59 Intake Total 240 Balance 240 Intake: Oral 240 Other: Voiding Method Toilet Toilet Toilet # Voids 1 2 Weight 109.316 kg GENERAL DESCRIPTION: Elderly male lying in bed, no distress. No tachypnea or accessory muscle of respiration use. HEENT: Shows Pallor , no scleral icterus. Oral mucous membrane is dry. No pharyngeal erythema or thrush NECK: Trachea central, no thyromegaly. LUNGS: Unlabored breathing. Clear to auscultation anteriorly. No wheeze or crackle. HEART: S1, S2, regular rate and rhythm. No loud murmur ABDOMEN: Soft, no tenderness , guarding or rigidity, no organomegaly EXTREMITIES: Right lower extremity did have swelling and redness did have a wound on the plantar aspect of the right foot with no slough tissue SKIN: No rash, no masses palpable. NEUROLOGICAL: The patient is awake, alert, oriented x3, mood and affect normal. Results CBC & Chem 7: 04/13/23 05:37 04/13/23 05:37 Labs: Abnormal Lab Results - Last 24 Hours (Table) 04/12/23 04/12/23 04/12/23 Range/Units 11:47 17:57 20:30 RBC (4.40-5.60) X 10*6/uL Hgb (13.0-17.0) d/dL Hct (39.6-50.0) % RDW (11.5-14.5) % Plt Count (140-440) X 10*3/uL Lymphocytes # (0.90-5.00) X 10*3/uL Eosinophils # (0.04-0.35) X 10*3/uL ESR (0-20) mm/Hr Glucose (70-110) mg/dL POC Glucose (mg/dL) 239 H 306 H (70-110) mg/dL Calcium (8.7-10.3) mg/dL Total Bilirubin (0.3-1.2) mg/dL ALT (10-49) U/L Creatine Kinase (55-170) U/L C-Reactive Protein (0.00-0.80) mg/dL Total Protein (6.2-8.2) d/dL Albumin (3.8-4.9) d/dL Albumin/Globulin Ratio (1.60-3.17) Ratio Procalcitonin 0.46 H (0.02-0.09) ng/mL Urine Protein (Negative) Urine Glucose (UA) (Negative) Urine Blood (Negative) Urine Mucus (None) /hpf 04/12/23 04/13/23 04/13/23 Range/Units 22:06 05:37 05:37 RBC 4.31 L (4.40-5.60) X 10*6/uL Hgb 12.0 L (13.0-17.0) d/dL Hct 34.7 L (39.6-50.0) % RDW 14.7 H (11.5-14.5) % Plt Count 120 L (140-440) X 10*3/uL Lymphocytes # 0.84 L (0.90-5.00) X 10*3/uL Eosinophils # 0 L (0.04-0.35) X 10*3/uL ESR 48 H (0-20) mm/Hr Glucose 189 H (70-110) mg/dL POC Glucose (mg/dL) (70-110) mg/dL Calcium 7.6 L (8.7-10.3) mg/dL Total Bilirubin 1.4 H (0.3-1.2) mg/dL ALT 9 L (10-49) U/L Creatine Kinase (55-170) U/L C-Reactive Protein 18.30 H (0.00-0.80) mg/dL Total Protein 5.8 L (6.2-8.2) d/dL Albumin 3.3 L (3.8-4.9) d/dL Albumin/Globulin Ratio 1.32 L (1.60-3.17) Ratio Procalcitonin (0.02-0.09) ng/mL Urine Protein 1+ H (Negative) Urine Glucose (UA) 4+ H (Negative) Urine Blood Moderate H (Negative) Urine Mucus Rare H (None) /hpf 04/13/23 04/13/23 04/13/23 Range/Units 06:24 08:48 12:20 RBC (4.40-5.60) X 10*6/uL Hgb (13.0-17.0) d/dL Hct (39.6-50.0) % RDW (11.5-14.5) % Plt Count (140-440) X 10*3/uL Lymphocytes # (0.90-5.00) X 10*3/uL Eosinophils # (0.04-0.35) X 10*3/uL ESR (0-20) mm/Hr Glucose (70-110) mg/dL POC Glucose (mg/dL) 197 H 241 H (70-110) mg/dL Calcium (8.7-10.3) mg/dL Total Bilirubin (0.3-1.2) mg/dL ALT (10-49) U/L Creatine Kinase 264 H (55-170) U/L C-Reactive Protein (0.00-0.80) mg/dL Total Protein (6.2-8.2) d/dL Albumin (3.8-4.9) d/dL Albumin/Globulin Ratio (1.60-3.17) Ratio Procalcitonin (0.02-0.09) ng/mL Urine Protein (Negative) Urine Glucose (UA) (Negative) Urine Blood (Negative) Urine Mucus (None) /hpf Assessment and Plan (1) Cellulitis of right leg Current Visit: Yes Status: Acute Code(s): L03.115 - CELLULITIS OF RIGHT LOWER LIMB SNOMED Code(s): 28175113831366860 (2) Diabetic foot ulcer Current Visit: Yes Status: Acute Code(s): E11.621 - TYPE 2 DIABETES MELLITUS WITH FOOT ULCER; L97.509 - NON-PRESSURE CHRONIC ULCER OTH PRT UNSP FOOT W UNSP SEVERITY SNOMED Code(s): 810971931 (3) Sepsis Current Visit: Yes Status: Acute Code(s): A41.9 - SEPSIS, UNSPECIFIED ORGANISM SNOMED Code(s): 72408943 Plan: Patient presented to hospital with a fever weakness source with likely right lower extremity cellulitis with a source of infection could be the right foot plantar ulcer as currently do not have any other obvious focus of infection patient lungs were clear to auscultation abdomen is soft no urinary symptoms 2-we will obtain aerobic and anaerobic culture from the right foot plantar ulcer 3-empirically start patient on Unasyn 3 g every 6 hours We will follow on clinical condition and cultures to further adjust medication if needed Thank you for this consultation we will follow the patient along with you Dictation was produced using [employer] dictation software. please excuse any grammatical, word or spelling errors. Time with Patient: Greater than 30
[2023-04-13 20:47] LABS: Glucose,Whole Blood 254 mg/dL (70-110)
[2023-04-14] MEDS: SODIUM CHLORIDE 0.9% 1,000 ML IV SCH (04:12)
[2023-04-14 05:40] LABS: Glucose,Whole Blood 210 mg/dL (70-110)
[2023-04-14] MEDS: AMPICILLIN-SULBACTAM 3 GM in SODIUM CHLORIDE 0.9% 100 ML IVPB SCH ×4 (05:48→23:43)
[2023-04-14] MEDS: INSULIN ASPART (NovoLOG) 100 UNIT/ML VIAL SQ SCH ×4 (05:48→21:27)
[2023-04-14] MEDS: PANTOPRAZOLE 40 MG TABLET PO SCH (05:49)
[2023-04-14] MEDS: ATORVASTATIN 40 MG TAB PO SCH (09:03)
[2023-04-14] MEDS: allopurinoL 300 MG TAB PO SCH (09:03)
[2023-04-14] MEDS: ENOXAPARIN 40 MG/0.4 ML SYRINGE SQ SCH (09:03)
[2023-04-14] MEDS: ASPIRIN 81 MG PO SCH (09:03)
[2023-04-14] MEDS: FAMOTIDINE 20 MG TAB PO SCH ×2 (09:04→21:26)
[2023-04-14] MEDS: VALSARTAN 160 MG TAB PO SCH (10:27)
[2023-04-14] MEDS: amLODIPine 10 MG TAB PO SCH (10:28)
[2023-04-14 11:31] LABS: Glucose,Whole Blood 275 mg/dL (70-110)
[2023-04-14] MEDS ORDERED: ZOLPIDEM 5 MG TAB PO PRN (11:40)
--- NOTE | 2023-04-14 11:45 | P.PN ---
Subjective Progress Note Date: 04/14/23 78-year-old male with PMH of diabetes mellitus, hypertension, restless leg syndrome, gout, BPH, GERD, dyslipidemia presents to [facility] for 3-4 days of generalized weakness. Of note, patient has recently installed a heater in his garage and believes he may have carbon monoxide poisoning. He has been hanging out in the garage with the door closed when he would experience nausea, lightheadedness, generalized weakness and chills. This is happened every day since Friday. He would usually sleep it off and feel somewhat normal midday the following day. He reports a dry cough. He does complain of shortness of breath with exertion. He has no other complaints. He reports one episode of diarrhea. He reports a chronic wound on his right foot has been ongoing for the past 2 years [facility] In the ED, he was noted to be febrile with T-max 101.2. He was tachycardic with heart rate as high as 96. His BP was as low as 98/52. CBC showed hematocrit of 37.2 and platelet count of 132 with slight neutrophilia. INR was 1. Carbon monoxide 1.1. CMP showed sodium of 131, chloride of 97, BUN 21, glucose 239, total bilirubin 2.4, calcium 8.2. Lactic acid 1.8. Flu, RSV, COVID-19 negative. Chest x-ray with no acute process. EKG showed sinus rhythm, PVCs, RBBB. 04/13 Patient seen and examined. He reports difficulty sleeping last night. Complains of fatigue and episodes of sweating overnight. Troponin 0.018. Procal 0.46. UA shows moderate blood with 2 RBCs. Tmax 102.8F around 7:41 PM last night. Foot XR negative for OM. ESR 48. CRP 18.3. Antibiotics switched from Rocephin to Unasyn by ID today. 04/14 Patient seen and examined. Tmax 100.1F over the past 24H. Intermittent chills overnight. Feeling a little lightheaded this morning. Continues to have dry cough. CPK slightly elevated at 264. Discussed with Dr. Kang, obtain bone scan to rule out OM of the right foot. Plans to repeat CXR given elevated pro- calcitonin. General: non toxic, no distress, appears at stated age Derm: warm, dry Head: atraumatic, normocephalic, symmetric Eyes: EOMI, no lid lag, anicteric sclera Cardiovascular: S1S2 reg, no murmur Lungs: CTA bilateral, no rhonchi, no rales , no accessory muscle use Ext: no gross muscle atrophy, no edema, no contractures R mid gutierrez erythema and superficial wound, venous ulcer. R lateral foot wound with no discharge or erythema. Neuro: no focal neuro deficits Psych: Alert, oriented, appropriate affect Sepsis of unknown origin R foot wound Venous ulcer RLE Dry cough Elevated total bilirubin Diabetes mellitus with hyperglycemia Hyponatremia Mild thrombocytopenia Hematuria Chronic conditions: Restless leg syndrome, hypertension, gout, BPH, GERD, dyslipidemia Based on my assessment of this patient, this patient meets a moderate complexity level of care. Patient has an acute diagnosis of Sepsis on unknown origin that poses a threat to life or bodily function. Sepsis of unknown origin: Fever, tachycardia, hypotension. UA negative for LE or nitrite. BCx neg at 24H. ESR, CRP elevated. Procalcitonin 0.46. Obtain bone scan. Telemetry monitoring. Rocephin switched to Unasyn on 04/13. ID on board. R foot wound: Abx as above. Foot XR negative for OM. Obtain bone scan. Venous ulcer RLE Dry cough: Repeat CXR given elevated procalcitonin. Elevated total bilirubin: GB US negative for pathology. Diabetes mellitus with hyperglycemia: MISS. Hiwot JOSHI. Hypoglycemic precautions. Hyponatremia Mild thrombocytopenia Hematuria: Obtain CPK. I have reviewed the following guidance consultant notes: ID note. I have reviewed the results of the following tests: BCx. CPK. I have ordered the following tests: Bone scan. Repeat CXR. I have discussed the care of this patient with the following independent historian: I have independently interpreted the following test below: I have discussed the management of this patient with the following physician: Discussed with Dr. Kang. Objective - Vital Signs Vital signs: Vital Signs Temp 98.0 F 04/14/23 07:00 Pulse 51 L 04/14/23 07:00 Resp 16 04/14/23 07:00 BP 143/85 04/14/23 07:00 Pulse Ox 98 04/14/23 07:00 FiO2 Intake & Output 04/13/23 04/14/23 04/14/23 18:59 06:59 18:59 Intake Total 476 Output Total 425 Balance 476 -425 Intake: Oral 476 Output: Urine 425 Other: Voiding Method Toilet Toilet # Voids 3 1 - Labs CBC & Chem 7: 04/13/23 05:37 04/13/23 05:37 Labs: Abnormal Lab Results - Last 24 Hours (Table) 04/13/23 04/13/23 04/13/23 Range/Units 12:20 17:19 20:46 POC Glucose (mg/dL) 241 H 239 H 254 H (70-110) mg/dL 04/14/23 04/14/23 Range/Units 05:38 11:29 POC Glucose (mg/dL) 210 H 275 H (70-110) mg/dL Microbiology - Last 24 Hours (Table) 04/12/23 11:35 Blood Culture - Preliminary Blood 04/12/23 11:50 Blood Culture - Preliminary Blood
--- NOTE | 2023-04-14 15:45 | NM ---
EXAMINATION TYPE: NM bone 3 phase DATE OF EXAM: 04/14/2023 COMPARISON: Right foot radiograph 04/12/2023 CLINICAL INDICATION: Male, 78 years old with history of r foot ulcer; Triple phase bone scintigraphy was performed following the injection of 25.2 mCi Tc 99m MDP. Immedia te images and 4 hours post injection images acquired. FINDINGS/IMPRESSION: No hyperemia identified on the flow phase. There is focal increased uptake within both midfoot on the immediate phase with right greater than left. There is continued focal uptake identified within the left midfoot on the delayed phase. Findings are most consistent with degenerative changes. No definit perico evidence for osteomyelitis.
--- NOTE | 2023-04-14 16:39 | XR ---
EXAMINATION TYPE: XR chest 1V portable DATE OF EXAM: 04/14/2023 COMPARISON: 04/12/2023 INDICATION: Pneumonia, cough TECHNIQUE: Single frontal view of the chest is obtained. FINDINGS: The heart size is normal. The pulmonary vasculature is normal. The lungs are clear. IMPRESSION: 1. No acute pulmonary process.
[2023-04-14 17:13] LABS: Glucose,Whole Blood 228 mg/dL (70-110)
[2023-04-14 20:17] LABS: Glucose,Whole Blood 263 mg/dL (70-110)
[2023-04-14] MEDS: rOPINIRole HCL 4 MG TABLET PO SCH (21:26)
[2023-04-15] MEDS: ACETAMINOPHEN TAB 325 MG TAB PO PRN (02:53)
[2023-04-15 06:08] LABS: Glucose,Whole Blood 218 mg/dL (70-110)
[2023-04-15] MEDS: AMPICILLIN-SULBACTAM 3 GM in SODIUM CHLORIDE 0.9% 100 ML IVPB SCH ×2 (06:25→13:57)
[2023-04-15] MEDS: INSULIN ASPART (NovoLOG) 100 UNIT/ML VIAL SQ SCH ×2 (06:26→13:57)
[2023-04-15] MEDS: PANTOPRAZOLE 40 MG TABLET PO SCH (06:26)
[2023-04-15 07:25] VITALS: BP 147/57; PULSE 66; RESP 17; TEMP 98.3
[2023-04-15] MEDS: ENOXAPARIN 40 MG/0.4 ML SYRINGE SQ SCH (08:09)
[2023-04-15] MEDS: amLODIPine 10 MG TAB PO SCH (08:10)
[2023-04-15] MEDS: allopurinoL 300 MG TAB PO SCH (08:10)
[2023-04-15] MEDS: FAMOTIDINE 20 MG TAB PO SCH (08:10)
[2023-04-15] MEDS: ASPIRIN 81 MG PO SCH (08:10)
[2023-04-15] MEDS: ATORVASTATIN 40 MG TAB PO SCH (08:10)
[2023-04-15] MEDS: VALSARTAN 160 MG TAB PO SCH (08:10)
[2023-04-15] MEDS ORDERED: TAMSULOSIN 0.4 MG CAP.ER.24H PO SCH (09:00)
[2023-04-15] MEDS ORDERED: INSULIN DETEMIR (LEVEMIR) 100 UNIT/ML SYR SQ SCH (09:00)
--- NOTE | 2023-04-15 13:15 | P.DS ---
Providers Date of admission: 04/12/23 14:39 Expected date of discharge: 04/15/23 Attending physician: Jensen Renee MD Consults: 04/12/23 18:32 Consult Physician Routine Consulting Provider: Tayla Kang Consult Reason/Comments: SIRS, R foot wound Do you want consulting provider notified?: Yes Primary care physician: [facility] Hospital Course: Sepsis of unknown origin R foot wound Venous ulcer RLE Dry cough Elevated total bilirubin Diabetes mellitus with hyperglycemia Hyponatremia Mild thrombocytopenia Hematuria Chronic conditions: Restless leg syndrome, hypertension, gout, BPH, GERD, dyslipidemia Hospital Course: 78-year-old male with PMH of diabetes mellitus, hypertension, restless leg syndrome, gout, BPH, GERD, dyslipidemia presents to [facility] for 3-4 days of generalized weakness. Of note, patient has recently installed a heater in his garage and believes he may have carbon monoxide poisoning. He has been hanging out in the garage with the door closed when he would experience nausea, lightheadedness, generalized weakness and chills. This is happened every day since Friday. He would usually sleep it off and feel somewhat normal midday the following day. He reports a dry cough. He does complain of shortness of breath with exertion. He has no other complaints. He reports one episode of diarrhea. He reports a chronic wound on his right foot has been ongoing for the past 2 years being treated by [facility]. In the ED, he was noted to be febrile with T-max 101.2. He was tachycardic with heart rate as high as 96. Hi s BP was as low as 98/52. CBC showed hematocrit of 37.2 and platelet count of 132 with slight neutrophilia. INR was 1. Carbon monoxide 1.1. CMP showed sodium of 131, chloride of 97, BUN 21, glucose 239, total bilirubin 2.4, calcium 8.2. Lactic acid 1.8. Flu, RSV, COVID-19 negative. Chest x-ray with no acute process. EKG showed sinus rhythm, PVCs, RBBB. 04/13 Patient seen and examined. He reports difficulty sleeping last night. Complains of fatigue and episodes of sweating overnight. Troponin 0.018. Procal 0.46. UA shows moderate blood with 2 RBCs. Tmax 102.8F around 7:41 PM last night . Foot XR negative for OM. ESR 48. CRP 18.3. Antibiotics switched from Rocephin to Unasyn by ID today. 04/14 Patient seen and examined. Tmax 100.1F over the past 24H. Intermittent chills overnight. Feeling a little lightheaded this morning. Continues to have dry cough. CPK slightly elevated at 264. Discussed with Dr. Kang, obtain bone scan to rule out OM of the right foot. Plans to repeat CXR given elevated pro- calcitonin. 04/15 Pts fever profile improved overall while on abx. Consideration of cellulitis given of RLE wound. Osteo was ruled out with bone scan. Repeat CXR negative for infx. Discussed with patient the recs to d/c with augmentin to complete 7 day course. Pt should also f/u with PCP to repeat CBC given thrombocytopenia, this was discussed with patient as well. Gen: awake, alert HEENT: normocephalic, atraumatic, good hearing acuity, moist mucous membranes Resp: good air exchange, breathing comfortably with no accessory muscle use CVS: good distal perfusion x 4, GI: soft, NTTP, ND : no SPT, no CVAT, amado catheter not present MSK: no pitting edema, no clubbing Neuro: non-focal, moving all extremities Psych: cooperative, euthymic mood I spent 32 minutes coordinating this discharge on 04/15 Patient Condition at Discharge: Good Plan - Discharge Summary Discharge Rx Participant: No New Discharge Prescriptions: New Acetaminophen Tab [Tylenol] 650 mg PO Q6HR PRN tab PRN Reason: Mild Pain Or Fever > 100.5 Amoxic-Pot Clav 875-125Mg [Augmentin 875-125] 1 tab PO BID 4 Days #8 tab Continue Omeprazole 20 mg PO DAILY rOPINIRole HCL [Requip] 4 mg PO HS Tamsulosin HCl [Flomax] 0.4 mg PO DAILY Insulin Glargine,Hum.rec.anlog [Lantus Solostar Pen] 40 unit SQ BID Valsartan 320 mg PO DAILY Aspirin EC [Ecotrin Low Dose] 81 mg PO DAILY amLODIPine [Norvasc] 10 mg PO DAILY allopurinoL [Zyloprim] 300 mg PO DAILY Semaglutide [Ozempic] 0.5 mg SQ FR metFORMIN HCL [Glucophage] 1,000 mg PO BID Insulin Aspart [NovoLOG Flexpen] See Protocol SQ AC-TID PRN PRN Reason: Blood Sugar - High Atorvastatin [Lipitor] 40 mg PO DAILY Discharge Medication List Aspirin EC [Ecotrin Low Dose] 81 mg PO DAILY 06/28/21 [History] Atorvastatin [Lipitor] 40 mg PO DAILY 06/28/21 [History] Insulin Aspart [NovoLOG Flexpen] See Protocol SQ AC-TID PRN 06/28/21 [History] Insulin Glargine,Hum.rec.anlog [Lantus Solostar Pen] 40 unit SQ BID 06/28/21 [History] Omeprazole 20 mg PO DAILY 06/28/21 [History] Semaglutide [Ozempic] 0.5 mg SQ FR 06/28/21 [History] Tamsulosin HCl [Flomax] 0.4 mg PO DAILY 06/28/21 [History] Valsartan 320 mg PO DAILY 06/28/21 [History] allopurinoL [Zyloprim] 300 mg PO DAILY 06/28/21 [History] metFORMIN HCL [Glucophage] 1,000 mg PO BID 06/28/21 [History] rOPINIRole HCL [Requip] 4 mg PO HS 06/28/21 [History] amLODIPine [Norvasc] 10 mg PO DAILY 04/12/23 [History] Acetaminophen Tab [Tylenol] 650 mg PO Q6HR PRN tab 04/15/23 [Rx] Amoxic-Pot Clav 875-125Mg [Augmentin 875-125] 1 tab PO BID 4 Days #8 tab 04/15/23 [Rx] Follow up Appointment(s)/Referral(s): [facility],Clinic [Primary Care Provider] - 1-2 days Patient Instructions/Handouts: Fever in Adults (ED) Activity/Diet/Wound Care/Special Instructions: [id number] Tylenol or Motrin as needed. Please do follow-up with your primary care physician in the next day or 2 for recheck. Return for difficulty breathing, pain, abdominal pain, weakness, worsening symptoms or other concerns. [id number] Tylenol or Motrin. You will need a follow up CBC to keep track of your low platelet count in 3-5 days via your primary care doctor Discharge Disposition: HOME SELF-CARE
--- NOTE | 2023-04-15 13:57 | P.PN ---
Subjective Progress Note Date: 04/14/23 Principal diagnosis: Diabetic foot ulcer right leg cellulitis Patient is a 78-year-old male with a past medical history significant for diabetes mellitus hypertension hyperlipidemia patient did have a history of right foot recurrent plantar ulcers for the patient has been evaluated by tobacco prizer at the [place], presented to hospital with weakness fatigue fever with evidence of right lower extremity cellulitis. On today's evaluation that is 04/14/2023, the patient did have a low-grade fever 100.1F earlier this morning, the patient is breathing comfortably on room air without the need for supplemental oxygen and no shortness of breath, the patient denies having any chest pain or cough, patient denies nausea/vomiting /diarrhea and no abdominal pain, patient right leg swelling redness has decreased. Patient did have white count of 7.31, creatinine is 1.2 as of 04/13/2023, blood cultures pending local cultures pending Objective - Vital Signs Vital signs: Vital Signs Temp 98.0 F 04/14/23 07:00 Pulse 51 L 04/14/23 07:00 Resp 16 04/14/23 07:00 BP 143/85 04/14/23 07:00 Pulse Ox 98 04/14/23 07:00 FiO2 Intake & Output 04/13/23 04/14/23 04/14/23 18:59 06:59 18:59 Intake Total 476 Output Total 425 Balance 476 -425 Intake: Oral 476 Output: Urine 425 Other: Voiding Method Toilet Toilet # Voids 3 1 - Exam GENERAL DESCRIPTION: An elderly male lying in bed in no distress RESPIRATORY SYSTEM: Unlabored breathing , decreased breath sounds at bases HEART: S1 S2 regular rate and rhythm , ABDOMEN: Soft , no tenderness EXTREMITIES: Right leg swelling redness has decreased - Labs CBC & Chem 7: 04/13/23 05:37 04/13/23 05:37 Labs: Abnormal Lab Results - Last 24 Hours (Table) 04/13/23 04/13/23 04/13/23 Range/Units 12:20 17:19 20:46 POC Glucose (mg/dL) 241 H 239 H 254 H (70-110) mg/dL 04/14/23 Range/Units 05:38 POC Glucose (mg/dL) 210 H (70-110) mg/dL Microbiology - Last 24 Hours (Table) 04/12/23 11:35 Blood Culture - Preliminary Blood 04/12/23 11:50 Blood Culture - Preliminary Blood Assessment and Plan (1) Cellulitis of right leg Current Visit: Yes Status: Acute Code(s): L03.115 - CELLULITIS OF RIGHT LOWER LIMB SNOMED Code(s): 86952024241621621 (2) Diabetic foot ulcer Current Visit: Yes Status: Acute Code(s): E11.621 - TYPE 2 DIABETES MELLITUS WITH FOOT ULCER; L97.509 - NON-PRESSURE CHRONIC ULCER OTH PRT UNSP FOOT W UNSP SEVERITY SNOMED Code(s): 065759857 Plan: Patient presented to hospital with a fever weakness source with likely right lower extremity cellulitis with a source of infection could be the right foot plantar ulcer as currently do not have any other obvious focus of infection patient lungs were clear to auscultation abdomen is soft no urinary symptoms 2- aerobic and anaerobic culture from the right foot plantar ulcer has been obtained and currently pending, bone scan is pending 3patient has shown some clinical improvement and will continue on Unasyn 3 g every 6 hours, while waiting for the cultures to finalize Dictation was produced using [employer] dictation software. please excuse any grammatical, word or spelling errors. Time with Patient: Less than 30
--- NOTE | 2023-04-15 14:00 | P.PN ---
Subjective Progress Note Date: 04/15/23 Principal diagnosis: Diabetic foot ulcer right leg cellulitis Patient is a 78-year-old male with a past medical history significant for diabetes mellitus hypertension hyperlipidemia patient did have a history of right foot recurrent plantar ulcers for the patient has been evaluated by patient access representative at the [place], presented to hospital with weakness fatigue fever with evidence of right lower extremity cellulitis. On today's evaluation that is 04/15/2023, the patient did have overall improvement in his fever pattern with a temperature of 184 after midnight the patient is afebrile since then the patient is breathing comfortably on room air, the patient denies chest pain, shortness of breath or cough, patient denies abdominal pain, no nausea/vomiting and no diarrhea , patient right leg swelling redness has resolved Patient did have white count of 7.31 and creatinine of 1.2 as of 04/13/2023 blood culture negative local cultures with staph aureus bone scan was negative for osteomyelitis Objective - Vital Signs Vital signs: Vital Signs Temp 98.3 F 04/15/23 07:00 Pulse 66 04/15/23 08:00 Resp 17 04/15/23 08:00 BP 147/57 04/15/23 07:00 Pulse Ox 98 04/15/23 07:00 FiO2 Intake & Output 04/14/23 04/15/23 04/15/23 18:59 06:59 18:59 Intake Total 118 Balance 118 Intake: Oral 118 Other: Voiding Method Toilet Toilet # Voids 3 1 - Exam GENERAL DESCRIPTION: An elderly male lying in bed in no distress RESPIRATORY SYSTEM: Unlabored breathing , decreased breath sounds at bases HEART: S1 S2 regular rate and rhythm , ABDOMEN: Soft , no tenderness EXTREMITIES: Right leg swelling redness has decreased - Labs CBC & Chem 7: 04/13/23 05:37 04/13/23 05:37 Labs: Abnormal Lab Results - Last 24 Hours (Table) 04/14/23 04/14/23 04/14/23 Range/Units 11:29 17:12 20:16 POC Glucose (mg/dL) 275 H 228 H 263 H (70-110) mg/dL 04/15/23 Range/Units 06:07 POC Glucose (mg/dL) 218 H (70-110) mg/dL Microbiology - Last 24 Hours (Table) 04/13/23 13:10 Gram Stain - Preliminary Foot - Right Wound Culture - Preliminary Presumptive Staph aureus 04/12/23 11:35 Blood Culture - Preliminary Blood 04/12/23 11:50 Blood Culture - Preliminary Blood Assessment and Plan (1) Cellulitis of right leg Current Visit: Yes Status: Acute Code(s): L03.115 - CELLULITIS OF RIGHT LOWER LIMB SNOMED Code(s): 52721794951258592 (2) Diabetic foot ulcer Current Visit: Yes Status: Acute Code(s): E11.621 - TYPE 2 DIABETES MELLITUS WITH FOOT ULCER; L97.509 - NON-PRESSURE CHRONIC ULCER OTH PRT UNSP FOOT W UNSP SEVERITY SNOMED Code(s): 849296048 Plan: Patient presented to hospital with a fever weakness source with likely right lower extremity cellulitis with a source of infection could be the right foot plantar ulcer as currently do not have any other obvious focus of infection patient lungs were clear to auscultation abdomen is soft no urinary symptoms 2- aerobic and anaerobic culture from the right foot plantar ulcer has been obtained and currently growing Staphylococcus aureus with sensitivities pending, bone scan is negative for osteomyelitis 3patient has shown some clinical improvement and will continue on Unasyn 3 g every 6 hours, while waiting for the cultures to finalize, possible oral Augmentin if MSSA and close patient follow-up Dictation was produced using [employer] dictation software. please excuse any grammatical, word or spelling errors. Time with Patient: Less than 30
== END 2023-04-15 13:58 | disposition home or self-care (01) | DRG 872 ==
LOC: EC 11:05 → 6NMEDSUR 14:39 → OBSVTOIN 14:39 → 6NMEDSUR 15:02
PROVIDERS: ADMIT Family Medicine; ATTEND Family Medicine
DX: A41.9 Sepsis, unspecified organism (principal); E87.1 Hypo-osmolality and hyponatremia; L03.115 Cellulitis of right lower limb; D69.6 Thrombocytopenia, unspecified; E11.621 Type 2 diabetes mellitus with foot ulcer; E78.5 Hyperlipidemia, unspecified; G25.81 Restless legs syndrome; E11.65 Type 2 diabetes mellitus with hyperglycemia; I10 Essential (primary) hypertension; I45.10 Unspecified right bundle-branch block; K21.9 Gastro-esophageal reflux disease without esophagitis; L97.519 Non-pressure chronic ulcer of other part of right foot with unspecified severity; M10.9 Gout, unspecified; N30.91 Cystitis, unspecified with hematuria; N40.0 Benign prostatic hyperplasia without lower urinary tract symptoms; Z77.028 Contact with and (suspected) exposure to other hazardous aromatic compounds; Z79.82 Long term (current) use of aspirin; Z79.84 Long term (current) use of oral hypoglycemic drugs; Z79.899 Other long term (current) drug therapy; Z85.828 Personal history of other malignant neoplasm of skin
CPT/HCPCS: 36415; 71045; 71046; 76705; 78315; 80053; 81001; 82375; 82550; 83605; 84145; 84484; 85025; 85610; 85652; 85730; 86140; 87040; 87070; 87075; 87077; 87186; 87205; 87636; 93005; 96361; 96365; 99285